=== PATIENT | female | born 1950 | race Caucasian/White ===

== ENCOUNTER → 2021-04-18 | Outpatient (CLI) | payer MEDICARE, OTHER ==
[~2021-04-18] MED LIST: ASPIRIN EC81 MG PO; ATORVASTATIN CA20 MG PO; CLOPIDOGREL75 MG PO; IMDUR ER TAB 3030 MG PO; LOPRESSOR 25 MG25 MG PO; PANTOPRAZOLE SO40 MG PO; RESTORIL15 MG PO
== END ==
LOC: RAD 09:27
DX: M25.562 Pain in left knee (principal); M25.561 Pain in right knee; M54.2 Cervicalgia; M25.512 Pain in left shoulder; M25.522 Pain in left elbow; M25.532 Pain in left wrist
CPT/HCPCS: 72040; 73030; 73070; 73100; 73560

== ENCOUNTER → 2021-05-13 | Outpatient (CLI) | payer MEDICARE, OTHER | LOC: MRI 05-06 10:30 → US 05-12 09:00 | DX: N17.9 Acute kidney failure, unspecified (principal); R10.11 Right upper quadrant pain; K76.0 Fatty (change of) liver, not elsewhere classified | CPT/HCPCS: 76705 ==

== ENCOUNTER → 2021-06-17 | Day surgery (SDC) | payer MEDICARE, OTHER ==
[~2021-06-17] MED LIST changes: +HYDROXYZINE HCL25 MG PO; +SYNTHROID25 MCG PO
== END | disposition home or self-care (01) ==
LOC: OR 07:22
DX: K22.2 Esophageal obstruction (principal); K29.50 Unspecified chronic gastritis without bleeding; K44.9 Diaphragmatic hernia without obstruction or gangrene; R13.19 Other dysphagia; E66.3 Overweight; E03.9 Hypothyroidism, unspecified; E78.00 Pure hypercholesterolemia, unspecified; I25.2 Old myocardial infarction; Z79.899 Other long term (current) drug therapy; Z20.822 Contact with and (suspected) exposure to COVID-19; Z90.710 Acquired absence of both cervix and uterus; Z98.51 Tubal ligation status; Z95.5 Presence of coronary angioplasty implant and graft
CPT/HCPCS: J7040

== ENCOUNTER → 2021-09-16 | Outpatient (CLI) | payer MEDICARE, OTHER | LOC: EXRD 09:52 | DX: N17.9 Acute kidney failure, unspecified (principal) | CPT/HCPCS: 76775 ==

== ENCOUNTER → 2022-02-19 | Outpatient (CLI) | payer MEDICARE, OTHER ==
[~2022-02-19] MED LIST changes: +ASPIRIN81 MG PO; +FLUCONAZOLE150 MG PO; +NITROFURANTOIN50 MG PO; +PHYSICIANS1000 MCG/1 INJ; +PROBIOTIC; +REPATHA SY140 MG/1 M SQ; +ZOLOFT50 MG PO; +[UNRECOGNIZED DRUG - REMARK]
== END ==
LOC: RAD 07:06
DX: K56.699 Other intestinal obstruction unspecified as to partial versus complete obstruction (principal)
CPT/HCPCS: 74270